=== PATIENT | male | born 2000 | race African-American/Black ===

== ENCOUNTER 2024-09-17 19:39 | Emergency (ER) | payer BC ==
[~2024-09-17] VITALS: Ht 180.3 cm; Wt 74.8 kg
[2024-09-17] MEDS ORDERED: methylPREDNISolone SOD SUCC 125 MG/2ML VIAL ONE (20:53)
[2024-09-17] MEDS: methylPREDNISolone SOD SUCC 125 MG/2ML VIAL IM ONE (20:57)
[2024-09-17] MEDS: ALBUTEROL FS 2.5 MG/3 ML VIAL.NEB NEB ONE (21:20)
[2024-09-17] MEDS: IPRATROPIUM NEB FS 0.5 MG/2.5 ML AMPUL.NEB NEB ONE (21:20)
[2024-09-17] MEDS ORDERED: ALBUTEROL FS 2.5 MG/3 ML VIAL.NEB ONE (21:22)
[2024-09-17] MEDS ORDERED: IPRATROPIUM NEB FS 0.5 MG/2.5 ML AMPUL.NEB ONE (21:22)
[2024-09-17 21:25] VITALS: O2SAT 98
[2024-09-17] MEDS ORDERED: PRED50TA PO (21:34)
[2024-09-17 21:40] VITALS: O2SAT 98
[2024-09-17 21:46] VITALS: BP 132/78; TEMP 98.9; O2SAT 98
== END 2024-09-17 21:46 | disposition home or self-care (01) ==
LOC: ER 19:51
DX: J45.901 Unspecified asthma with (acute) exacerbation (principal); F17.200 Nicotine dependence, unspecified, uncomplicated; Z79.52 Long term (current) use of systemic steroids
CPT/HCPCS: 99283; 71045; 96372; 94799; 94640; J2919

== ENCOUNTER 2025-06-10 13:50 | Emergency (ER) | payer BC, OTHER ==
[~2025-06-10] VITALS: Ht 182.9 cm; Wt 90.7 kg
[~2025-06-10 13:50] MED LIST: PRED50TA PO
[2025-06-10 14:14] VITALS: TEMP 98.7
[2025-06-10] MEDS ORDERED: METOCLOPRAMIDE HCL 10 MG/2 ML VIAL ONE (15:05)
[2025-06-10] MEDS: IV NS 0.9% 1,000 ML BAG IV ONE (15:15)
[2025-06-10] MEDS: METOCLOPRAMIDE HCL 10 MG/2 ML VIAL IV ONE (15:18)
[2025-06-10] MEDS ORDERED: METO-295 PO (16:29)
[2025-06-10] MEDS ORDERED: IBUP-1490 PO (16:29)
[2025-06-10 17:05] VITALS: BP 125/70; O2SAT 99
== END 2025-06-10 17:06 | disposition home or self-care (01) ==
LOC: ER 13:59
DX: S06.0X0A Concussion without loss of consciousness, initial encounter (principal); Z79.52 Long term (current) use of systemic steroids; Z88.6 Allergy status to analgesic agent; Y08.89XA Assault by other specified means, initial encounter; Y93.89 Activity, other specified; Y92.89 Other specified places as the place of occurrence of the external cause; Y99.9 Unspecified external cause status
CPT/HCPCS: 99285; 70450; 96374; 96361; 70480; J2765; J7030